=== PATIENT | male | born 1950 | race Hispanic/Latino ===

== ENCOUNTER 2018-06-16 07:34 | Day surgery (SDC) | payer OTHER ==
[2018-06-14 15:00] VITALS: BP 162/91
[2018-06-14 16:29] LABS: BASOPHILS % (AUTO) 0.6 % (0.0-5.0); EOSINOPHILS % (AUTO) 4.6 % (0.0-8.0); HEMATOCRIT 42.3 % (42-54); LYMPHOCYTES % (AUTO) 21.8 % (21.0-51.0); MEAN CORPUSCULAR HEMOGLOBIN 31.3 pg (27.0-33.0); MEAN CORPUSCULAR HGB CONC 34.5 g/dL (32.0-36.0); MEAN CORPUSCULAR VOLUME 90.7 fL (79-99); PLATELET COUNT (AUTO) 191 K/uL (130-400); RED BLOOD CELL COUNT(AUTO) 4.66 MIL/uL (4.50-6.20); RED CELL DISTRIBUTION WIDTH 13.6 % (11.0-15.5); WHITE BLOOD COUNT (AUTO) 5.8 K/uL (4.8-10.8)
[2018-06-14 16:37] LABS: CREATININE 1.2 mg/dL (0.5-1.5); POTASSIUM 4.7 mmol/L (3.5-5.1)
[2018-06-16] VITALS (14 sets, daily range): BP systolic 125–151; BP diastolic 73–90
[~2018-06-16] VITALS: Ht 167.6 cm; Wt 91.0 kg
[2018-06-16] MEDS: CEFTRIAXONE SODIUM 1 GM IVP SCH ×2 (08:00→10:20)
[2018-06-16] MEDS ORDERED: METO50TA18 PO (08:57)
[2018-06-16] MEDS ORDERED: LISI10TA7 PO (08:57)
[2018-06-16] MEDS ORDERED: LACTATED RINGERS 1000ML 1,000 ML IV ONE (08:58)
[2018-06-16] MEDS ORDERED: PROPOFOL 10 MG/ML 20ML VIAL IV ONE (10:22)
[2018-06-16] MEDS ORDERED: LIDOCAINE PF 2% 5ML ABBOJECT ONE (10:22)
[2018-06-16] MEDS ORDERED: FENTANYL CITRATE PF 50 MCG/1 ML 2ML VIAL ONE (10:23)
[2018-06-16] MEDS ORDERED: EPHEDRINE SULFATE 50 MG/ML AMPULE ONE (10:34)
[2018-06-16] MEDS ORDERED: GLYCOPYRROLATE 1 MG/5 ML SYRINGE ONE (10:38)
--- NOTE | 2018-06-16 12:02 | NUR ---
RECEIVE PT RECEIVED FROM PACU VIA STRETCHER AWAKE ALERT ORIENTED X 3. PT STABLE. NO COMPLAINTS MADE. 18FR HILL CATH IN PLACE, DRAINING CLEAR VERY LIGHT PINK URINE, NO CLOTS NOTED. DRESSING TO PENIS SCANT AMOUNT PINK DRAINAGE, NO ACTIVE BLEEDING NOTED. CALL VERA WITHIN REACH, WILL CALL FAMILY TO COME IN TO ROOM.
[2018-06-16] MEDS ORDERED: PHENAZOPYRIDINE HCL 200 MG TABLET ONE (12:08)
[2018-06-16] MEDS ORDERED: PHENAZOPYRIDINE HCL 200 MG TABLET PO SCH (12:45)
--- NOTE | 2018-06-16 12:55 | NUR ---
DISCHARGE PT DISCHARGED VIA WHEELCHAIR WITH AND DAUGHTER. PT STABLE. NO COMPLAINTS MADE. URINE BAG CHANGED TO LEG BAG, SECURED IN PLACE, DRAINING CLEAR YELLOW URINE, APPROX 100 ML. DISCHARGE INSTRUCTIONS, [facility] INSTRUCTIONS AND DEMONSTRATION GIVEN TO AND DAUGHTER, VERBALIZED UNDERSTANDING.
== END 2018-06-16 12:55 | disposition home or self-care (01) ==
LOC: DAH 07:34
PROVIDERS: ATTEND Urology
DX: N32.0 Bladder-neck obstruction (principal); N32.3 Diverticulum of bladder; I48.91 Unspecified atrial fibrillation; I10 Essential (primary) hypertension; M19.90 Unspecified osteoarthritis, unspecified site; K40.90 Unilateral inguinal hernia, without obstruction or gangrene, not specified as recurrent; Z79.899 Other long term (current) drug therapy; Z98.890 Other specified postprocedural states; K21.9 Gastro-esophageal reflux disease without esophagitis
CPT/HCPCS: 36415; 52276; 80048; 85025; 93005; A4218; A4340; A4344; A4354; A4358; A4510; A4600; C1769; J0696; J2001; J2704; J3010; J3490 ×2; J7120 ×2

== ENCOUNTER 2020-02-21 14:55 | Observation (INO) | payer OTHER ==
[~2020-02-21] VITALS: Ht 167.6 cm; Wt 89.4 kg
[~2020-02-21 14:55] MED LIST: LISI10TA24 PO; METO50TA18 PO
[2020-02-21] MEDS ORDERED: MORPHINE 4 MG SYG ONE (15:30)
[2020-02-21] MEDS ORDERED: ONDANSETRON 4MG INJ ONE (15:30)
[2020-02-21 15:37] LABS: BILIRUBIN,URINE Negative (NEGATIVE); COLOR,URINE Yellow (YELLOW); GLUCOSE, URINE (UA) Negative (NEGATIVE); KETONES,URINE Trace mg/dL (NEGATIVE); LEUKOCYTE ESTERASE ,URINE Negative (NEGATIVE); NITRATE,URINE Negative (NEGATIVE); OCCULT BLOOD,URINE Small (NEGATIVE); PROTEIN,URINE Negative (NEGATIVE); UROBILINOGEN,URINE 0.2 mg/dL (0.2-1.0)
[2020-02-21 15:40] LABS: APPEARANCE,URINE CLEAR (CLEAR)
[2020-02-21 15:40] LABS: BASOPHILS % (AUTO) 0.4 % (0.0-5.0); EOSINOPHILS % (AUTO) 0.4 % (0.0-8.0); HEMATOCRIT 41.2 % (42-54); LYMPHOCYTES % (AUTO) 7.8 % (21.0-51.0); MEAN CORPUSCULAR HEMOGLOBIN 30.1 pg (27.0-33.0); MEAN CORPUSCULAR HGB CONC 33.5 g/dL (32.0-36.0); MONOCYTES % (AUTO) 3.8 % (3.0-13.0); NEUTROPHILS % (AUTO) 87.1 % (40.0-77.0); PLATELET COUNT (AUTO) 270 K/uL (130-400); RED BLOOD CELL COUNT(AUTO) 4.58 MIL/uL (4.50-6.20); RED CELL DISTRIBUTION WIDTH 12.7 % (11.0-15.5); WHITE BLOOD COUNT (AUTO) 12.4 K/uL (4.8-10.8)
[2020-02-21 15:50] LABS: BACTERIA,URINE Rare /HPF (None Seen); WBC,URINE 0-1 /HPF (0-1)
[2020-02-21 15:51] LABS: MUCUS,URINE Rare LPF (None Seen); SQUAMOUS EPITHELIAL CELL,UR Rare /HPF (0-2)
[2020-02-21 15:52] LABS: CREATININE 1.2 mg/dL (0.5-1.5); POTASSIUM 3.9 mmol/L (3.5-5.1)
[2020-02-21 15:55] LABS: INR 1.05 (0.85-1.15); PROTHROMBIN TIME 11.2 SEC (9.6-11.6)
[2020-02-21 15:56] LABS: ALBUMIN 4.3 g/dL (3.5-5.0); BILIRUBIN,TOTAL 0.4 mg/dL (0.2-1.0); PARTIAL THROMBOPLASTIN TIME 24.5 SEC (26.3-35.5); TOTAL PROTEIN, SERUM 7.8 g/dL (6.0-8.3)
[2020-02-21] MEDS ORDERED: IOHEXOL-350 75 ML VIAL IV ONE (16:11)
[2020-02-21] MEDS ORDERED: ZOSYN 3.375GM+NS 50ML 50 ML IV ONE (17:02)
[2020-02-21] MEDS: 0.9%NACL 1000ML 1,000 ML IV SCH (19:00)
[2020-02-21] MEDS ORDERED: ONDANSETRON 4MG INJ IVP PRN (19:00)
[2020-02-21] MEDS ORDERED: MORPHINE 2 MG SYG IVP PRN (19:00)
[2020-02-21] MEDS: FAMOTIDINE 20MG TAB PO SCH (21:00)
[2020-02-21] MEDS ORDERED: FAMOTIDINE 20MG TAB ONE (21:16)
[2020-02-21 22:15] VITALS: BP 151/85
[2020-02-22] MEDS: ZOSYN 3.375GM+NS 50ML 50 ML IV SCH ×3 (00:50→17:00)
[2020-02-22 03:59] VITALS: BP 130/77
[2020-02-22 04:40] LABS: BASOPHILS % (AUTO) 0.6 % (0.0-5.0); EOSINOPHILS % (AUTO) 3.5 % (0.0-8.0); HEMATOCRIT 36.5 % (42-54); LYMPHOCYTES % (AUTO) 24.5 % (21.0-51.0); MEAN CORPUSCULAR HEMOGLOBIN 29.5 pg (27.0-33.0); MEAN CORPUSCULAR HGB CONC 32.6 g/dL (32.0-36.0); MEAN CORPUSCULAR VOLUME 90.3 fL (79-99); MONOCYTES % (AUTO) 8.2 % (3.0-13.0); NEUTROPHILS % (AUTO) 62.9 % (40.0-77.0); PLATELET COUNT (AUTO) 220 K/uL (130-400); RED BLOOD CELL COUNT(AUTO) 4.04 MIL/uL (4.50-6.20); RED CELL DISTRIBUTION WIDTH 12.7 % (11.0-15.5); WHITE BLOOD COUNT (AUTO) 7.1 K/uL (4.8-10.8)
[2020-02-22 04:43] LABS: CREATININE 1.2 mg/dL (0.5-1.5); POTASSIUM 4.1 mmol/L (3.5-5.1)
[2020-02-22 05:12] LABS: INR 1.11 (0.85-1.15); PROTHROMBIN TIME 11.8 SEC (9.6-11.6)
[2020-02-22 05:13] LABS: PARTIAL THROMBOPLASTIN TIME 25.5 SEC (26.3-35.5)
[2020-02-22] MEDS: 0.9%NACL 1000ML 1,000 ML IV SCH ×2 (06:07→13:09)
[2020-02-22 08:00] VITALS: BP 138/78
[2020-02-22] MEDS: FAMOTIDINE 20MG TAB PO SCH (08:43)
[2020-02-22 12:00] VITALS: BP 161/74
[2020-02-22] MEDS ORDERED: MAGNESIUM CITRATE 296 ML SOLUTION PO SCH (13:45)
[2020-02-22 16:00] VITALS: BP 149/95
[2020-02-23] MEDS ORDERED: LISINOPRIL 10 MG TABLET PO SCH (09:00)
[2020-02-23] MEDS ORDERED: METOPROLOL TARTRATE 50 MG TAB PO SCH (09:00)
== END 2020-02-22 18:00 | disposition home or self-care (01) ==
LOC: EDH 14:55 → EDHIP 17:26 → 3DH 21:26
PROVIDERS: ADMIT Internal Medicine Pulmonary Disease; ATTEND Internal Medicine Pulmonary Disease
DX: K40.90 Unilateral inguinal hernia, without obstruction or gangrene, not specified as recurrent (principal); Z20.828 Contact with and (suspected) exposure to other viral communicable diseases; E86.0 Dehydration; K43.9 Ventral hernia without obstruction or gangrene; I10 Essential (primary) hypertension; D72.829 Elevated white blood cell count, unspecified; E66.01 Morbid (severe) obesity due to excess calories; Z90.79 Acquired absence of other genital organ(s); Z79.899 Other long term (current) drug therapy; Z68.31 Body mass index [BMI] 31.0-31.9, adult
CPT/HCPCS: 36415 ×2; 74177; 80048; 80053; 81001; 83605 ×2; 83690; 84484; 85025 ×2; 85610 ×2; 85730 ×2; 87040 ×2; 87426; 93005; 96361; 96365; 96366; 96375; 99291; G0378 ×25; J2270; J2405; J2543 ×3; J7030; Q9967; U0003